=== PATIENT | female | born 1985 | race Caucasian/White ===

== ENCOUNTER 2017-09-04 15:14 | Emergency (ER) | payer OTHER ==
[~2017-09-04] VITALS: Ht 167.6 cm; Wt 74.6 kg
[~2017-09-04 15:14] MED LIST: AUGMENTIN875 MG PO; BACTRIM,SEPT1 TABLET PO; CIPRO250 MG PO; CIPRO500 MG PO; CLOMIPHENE CITR50 MG PO; DIAZEPAM5 MG PO; DIFLUCAN50 MG PO; ELAVIL25 MG PO; FLEXERIL10 MG PO; HYCODAN SYRUP480 ML PO; IBUPROFEN800 MG PO; KEFLEX500 MG PO; KLONOPIN0.5 M1; LAMICTAL200 MG PO; LAMOTRIGINE200 MG PO; MACROBID100 MG PO; MOTRIN600 MG PO; MOTRIN800 MG PO; NAPROSYN500 MG PO; NAPROXEN500 MG PO; NEURONTIN300 MG PO; NORCO 5/3251 TABLET PO; OXYCODONE HCL5 M1 PO; PERCOCET 5/31 TABLET PO; PREDNISONE10 M1 PO; PROMETHAZINE HC25 M1 PO; PROZAC40 MG PO; PULMICORT FLE180 MCG IH; PYRIDIUM100 MG PO; ROBITUSSIN AC,T10 ML PO; TOPAMAX100 MG PO; TOPIRAMATE100 MG PO; TOPIRAMATE25 MG PO; TUSSIONEX PENN473 ML PO; TYLENOL EXTRA500 MG PO; VALIUM5 MG PO; ZOFRAN ODT4 MG PO; ZOFRAN4 MG PO
[2017-09-04 16:50] LABS: HEMATOCRIT 39.3 % (36.0-46.0); HEMOGLOBIN 13.1 G/DL (11.9-15.5); MCH 30.8 PG (29.0-34.0); MCHC 33.3 G/DL (30.0-36.0); MCV 92.3 FL (83-99); PLATELET COUNT 220 K/uL (156-360); RBC DIS.WIDTH-CV 12.8 % (11.8-14.6); RED BLOOD COUNT 4.26 M/uL (3.80-5.20); WHITE BLOOD COUNT 5.3 K/uL (4.1-10.2)
[2017-09-04 16:58] LABS: CHLORIDE 114 mEq/L (99-109); POTASSIUM 3.8 mEq/L (3.7-5.4); SODIUM 143 mEq/L (136-147)
[2017-09-04 17:00] LABS: GLUCOSE 92 mg/dL (70-99)
[2017-09-04 17:04] LABS: CREATININE 0.8 mg/dL (0.6-1.3); GFR ESTIMATE (CALCULATED) > 59 mL/min/; UREA NITROGEN (BUN) 13 mg/dL (9-23)
[2017-09-04 17:06] LABS: QUANTITATIVE HCG < 4.0 MIU/ML
[2017-09-04 17:13] LABS: APPEARANCE TURBID ((CLEAR)); BILIRUBIN NEGATIVE; BLOOD NEGATIVE; COLOR YELLOW ((YELLOW)); GLUCOSE (STRIP) NEGATIVE; KETONES NEGATIVE; LEUKOCYTES NEGATIVE; NITRITE NEGATIVE; PROTEIN (STRIP) NEGATIVE; SPECIFIC GRAVITY 1.018 (1.000-1.030); UROBILINOGEN 0.2 MG/DL (0.2-1.0)
[2017-09-04 17:29] LABS: BACTERIA 1+ /HPF; EPITHELIAL CELLS 1+ /HPF; MUCUS NONE SEEN /LPF; RED BLOOD CELLS NONE SEEN /HPF (0-5); UCUL ADDED? NO; WHITE BLOOD CELLS NONE SEEN /HPF (0-5)
[2017-09-04 17:30] LABS: AMORPHOUS PHOSPHATE CRYSTALS 1+
[2017-09-04] MEDS ORDERED: FLOMAX0.4 MG PO (19:36)
[2017-09-04] MEDS ORDERED: MOTRIN800 MG PO (19:36)
[2017-09-04] MEDS ORDERED: PERCOCET 5/31 TABLET PO (19:36)
[2017-09-04 19:57] VITALS: BP 125/80
== END 2017-09-04 19:58 | disposition home or self-care (01) ==
LOC: EME 15:14
PROVIDERS: Physician Assistant
DX: N20.0 Calculus of kidney (principal); Z87.442 Personal history of urinary calculi; Z88.0 Allergy status to penicillin; Z88.5 Allergy status to narcotic agent
CPT/HCPCS: 74176; 80048; 81003; 84702; 85027; 99281; 99284; J3010